=== PATIENT | female | born 1995 | race Caucasian/White ===

== ENCOUNTER 2021-12-01 22:05 | Inpatient (IN) | payer OTHER ==
[~2021-12-01] VITALS: Ht 165.1 cm; Wt 60.5 kg
[2021-12-01 22:18] LABS: BASO # 0.1 K/mm3 (0.0-0.2); BASO % 0.3 % (0.0-2.0); EOS # 0.1 K/mm3 (0.0-0.7); EOS % 0.2 % (0.0-4.0); GRAN # 17.4 K/mm3 (1.4-6.5); GRAN % 85.9 % (42.2-75.2); HEMOGLOBIN 11.3 g/dl (12.5-16.0); LYMPH # 1.5 K/mm3 (1.2-3.4); LYMPH % 7.6 % (20.0-51.0); MEAN CELL VOLUME 78 fl (80.0-100.0); MEAN CORPUSCULAR HEMOGLOBIN 25 pg (27-31); MEAN CORPUSCULAR HGB CONC 32 g/dl (33.0-37.0); MEAN PLATELET VOLUME 9.4 fl (7.4-10.4); MONO # 1.1 K/mm3 (0.1-0.6); MONO % 5.5 % (1.7-9.3); PLATELET COUNT 318 K/mm3 (130-400); RED BLOOD COUNT 4.55 M/mm3 (4.10-5.30); REDCELL DISTRIBUTION WIDTH-CV 16.3 % (11.5-14.5)
[2021-12-01 22:29] LABS: HEMATOCRIT 35.6 % (37.0-47.0)
[2021-12-01 22:32] LABS: ALBUMIN 3.4 gm/dL (3.5-5.0); BILIRUBIN,TOTAL 0.3 mg/dL (0.2-1.2); CALCIUM 8.7 mg/dL (8.4-10.2); CREATININE, serum 0.72 mg/dL (0.57-1.11); POTASSIUM 3.5 mmol/L (3.5-4.5); TOTAL PROTEIN 6.8 gm/dL (6.2-8.1)
[2021-12-01 23:04] LABS: COLLECTION METHOD CLEAN CATCH
[2021-12-01 23:10] LABS: PH 7 (5-8); URINE APPEARANCE Hazy (CLEAR/HAZY); URINE BACTERIA Rare /hpf (NONE SEEN); URINE BILIRUBIN Negative (NEGATIVE); URINE BLOOD 1+ (NEGATIVE); URINE COLOR Straw (YELLOW); URINE GLUCOSE Negative (NEGATIVE); URINE KETONE Negative (NEGATIVE); URINE LEUKOCYTE ESTERASE 2+ (NEGATIVE); URINE NITRATE Negative (NEGATIVE); URINE PROTEIN(semi-quant) Negative (NEGATIVE); URINE UROBILINOGEN Negative (NEGATIVE)
[2021-12-02] VITALS (9 sets, daily range): BP systolic 100–111; BP diastolic 45–66; PULSE 68–105; TEMP 91.8–100.7
[2021-12-02] MEDS ORDERED: ADVIL200 MG PO (01:37)
--- NOTE | 2021-12-02 02:20 | NUR ---
Patient arrived to medical floor from ER at approximately 0130. Alert and oriented x 4, and able to make needs known. Reports level 6 pain to right side. Called AUGUSTIN Rodriguez, and given PRN Dilaudid per orders. Peripheral IV to left AC with IV fluids running per orders. Denies SOB and dyspnea. LS CTA. HRR. Telemetry in place. Capillary refill less than 3 seconds. Non-tenting skin turgor. BSAx4. No edema. Voices no questions, needs, or concerns at this time. Given water, juice, and jello as requested. In bed with call light within reach.
--- NOTE | 2021-12-02 05:05 | NUR ---
Patient with chills. Checked temperature axillary due to having just drank ice water. Temp 100.7. Also complaining of pain and nausea. Given PRN Dilaudid for level 8 pain. Called Jennifer, and received orders for PRN Acetaminophen and Zofran. Patient voices no further questions, needs, or concerns at this time. In bed with call light within reach. IV fluids continue per orders.
--- NOTE | 2021-12-02 08:15 | NUR ---
Pt is resting in room with eyes closed. Friend visiting in the room and personal items are with in reach. Pt states that pain was persisant with Ketorolac. Pirmary nurse to give Hydromorphone.
--- NOTE | 2021-12-02 08:45 | NUR ---
This RN agrees w/shift assessment charted by student nurse. Pt continues to report moderate to severe pain to right lower abdomen and flank. IV toradol and dilaudid both given this morning per orders. Pt reports intermittent nausea, zofran given at 0500 per eMAR. Pt able to tolerate some breakfast. Does report rebound tenderness to RLQ as well. Denies further needs at this time. Continuing to monitor.
--- NOTE | 2021-12-02 13:06 | NUR ---
housekeeper/custodian/laundry worker met with patient to discuss discharge plan. Patient currently lives at home and splits custody of her 2 year old child with her ex . Child is staying with her ex while she is in the hospital. Patient's boyfriend Arnaldo ([phone]) present at bedside. Patient is independent with her ADL's and does not utilize ay DME to assist with mobility. Patient currently see's a PCP at [facility] and get's her medications through [facility]. Patient is still legally but they are in the middle of the divorce process. Once the divorce in final she is going to need a new PCP and will need to apply for [facility] for insurance. States that she thinks it will be a few more months until everything is finalized. Educated the patient that at this time her ex is still her legal NOK. Patient states that she has no contact with her parents. DPOA-HC form provided to the patient and encouraged her to complete it if she was not wanting her Ex or her parents down and her DPOA-HC. At this time, patient is planning on returning home with her boyfriend. Discharge plan: Home
--- NOTE | 2021-12-02 13:35 | NUR ---
First visit from the medical insurance collector. No needs right now.
--- NOTE | 2021-12-02 14:09 | NUR ---
Primary nurse was assisted with [id number] patient care by [facility] student Rachelle Hernandez and [employer] [employer] instructor Nara Hernandes MSN, RN.
--- NOTE | 2021-12-02 21:38 | NUR ---
Patient assessed around 2049. Alert and oriented x 4, and able to make needs known. Upon entering room, patient has eyes closed, and this nurse had to state patient's name multiple times before she opened her eyes. Had facial grimacing and complained of level 6 pain to right lower abdomen/side. During conversation, patient would start to close eyes and not respond to this nurse until repeating her name multiple times. Patient only given PRN Toradol for pain at that time. IV fluids continue per orders to left AC. Continues on IV ABX per orders. Patient voices no questions, needs, or concerns at this time. Went over visitor policy with her and visitor, and voiced understanding. In bed with call light within reach.
[2021-12-03 04:11] VITALS: BP 101/44; PULSE 58; TEMP 98.4
--- NOTE | 2021-12-03 05:12 | NUR ---
Patient has received PRN Zofran, Roxicodone, and scheduled APAP per orders. IV fluids continue per orders. In bed with call light within reach.
[2021-12-03 06:39] LABS: MEAN CELL VOLUME 79 fl (80.0-100.0); MEAN CORPUSCULAR HGB CONC 32 g/dl (33.0-37.0); MEAN PLATELET VOLUME 9.7 fl (7.4-10.4); PLATELET COUNT 248 K/mm3 (130-400); RED BLOOD COUNT 3.92 M/mm3 (4.10-5.30); REDCELL DISTRIBUTION WIDTH-CV 16.7 % (11.5-14.5)
[2021-12-03 06:49] LABS: HEMATOCRIT 30.9 % (37.0-47.0); HEMOGLOBIN 9.8 g/dl (12.5-16.0); MEAN CORPUSCULAR HEMOGLOBIN 25 pg (27-31)
[2021-12-03 07:07] LABS: CALCIUM 7.6 mg/dL (8.4-10.2); CREATININE, serum 0.73 mg/dL (0.57-1.11); POTASSIUM 3.8 mmol/L (3.5-4.5)
[2021-12-03 07:42] VITALS: BP 111/63; PULSE 88; TEMP 98.5
--- NOTE | 2021-12-03 09:30 | NUR ---
Assessment completed, alert/oriented, vital signs stable, reporting right flank pain still 10/10 and request pain meds, I gave scheduled Tylenol and IV Toradol as ordered, she reports pain now /10, WBC improving and she has been Afebrile, Urine cx + and BCx still pending, IVF running and she is taking PO intake well/ nausea improved , abd soft and BS+, denies other needs at this time, will cotinue to monitor
[2021-12-03 10:22] LABS: BAND 3 % (0-10); EOSINOPHIL 2 % (0-4); LYMPHOCYTE 17 % (20.0-51.0); NEUTROPHILS 72 % (42.0-75.2)
[2021-12-03 10:26] LABS: ANISOCYTOSIS 1+; HYPOCHROMIA 2+; MICROCYTOSIS 1+; PLATELET ESTIMATE NORMAL (NORMAL)
[2021-12-03 10:28] LABS: OVALOCYTES 1+
[2021-12-03] MEDS ORDERED: ROXICODONE 55 MG/TAB PO (10:39)
[2021-12-03] MEDS ORDERED: TYLENOL 500MG500 MG PO (10:40)
[2021-12-03] MEDS ORDERED: AMOXICILLIN 8751 TAB PO (10:40)
[2021-12-03] MEDS ORDERED: ZOFRAN ODT4 MG PO (10:40)
[2021-12-03 11:29] VITALS: BP 104/56; PULSE 64; TEMP 98.5
--- NOTE | 2021-12-03 11:47 | NUR ---
SW met with patient to complete intake. Patient states that she lives in [facility] with her young son. Points of contact are Peace Pardo [phone] and Es Villanueva [phone]. Patient states that she does not utilize DME and is independent with ADL's. Patient provides that her PCP is through [facility], current pharmacy is at [facility] [place] for the time being. Patient states she plans to return to her home upon DC. JANES will continue to follow. DC plan: home OLVIN
--- NOTE | 2021-12-03 12:35 | NUR ---
Discharge orders discussed with the patient, instructed to take meds as prescribed and finish antibiotic course as ordered, instructed to to establish with a primary care provided james and to follow up with them if any further issues, instructed her to stay hydrated and drink plenty of water, IV and tele removed, leaving with her boyfriend and JACK MACHINE OPERATOR escorted them out the door
== END 2021-12-03 13:04 | disposition home or self-care (01) | DRG 872 ==
LOC: COL.ER 22:05 → MEDICAL 12-02 00:46
PROVIDERS: Emergency Medicine; Physician Assistant; ADMIT Student in an Organized Health Care Education/Training Program
DX: A41.51 Sepsis due to Escherichia coli [E. coli] (principal); N12 Tubulo-interstitial nephritis, not specified as acute or chronic; F17.210 Nicotine dependence, cigarettes, uncomplicated
CPT/HCPCS: 99223-AI; 99239; J0696; J1170; J1885; J2270; J2405; J2543; J7030; Q9967